=== PATIENT | female | born 1995 | race Caucasian/White ===

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

== ENCOUNTER 2017-01-13 16:36 | Emergency (ER) | payer OTHER ==
[2017-01-13 16:41] VITALS: BP 124/69; PULSE 85; TEMP 98.4; BMI 35.9
--- NOTE | 2017-01-13 18:05 | PDOC ---
History of Present Illness - General Chief Complaint: Pain, Acute Stated Complaint: SHOULDER PAIN Time Seen by Provider: 01/13/17 17:31 History Source: Patient Exam Limitations: No Limitations - History of Present Illness Initial Comments: 01/13/17 18:01 Chief complaint: Right shoulder pain with radiation to under rt. breast History of present illness: Patient is a 21-year-old female with a history of PCOS and hypothyroidism here today complaining of right shoulder pain that radiates to right torso to right rib cage area under right breast that is worse with deep breathing and with certain movements or the last 4 days. Patient reports that today the pain was worse causing her to have to leave work.. Patient is also on oral contraceptives. 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 Patient easily bruises according to her and her mother and has a bruise on her right dorsal proximal forearm that patient noticed on Monday when she got home. She denies any shortness of breath. Patient denies any nasal congestion, sore throat, cough or any shortness of breath. Patient reports that she cannot lie on her right side lies that her left side however still continues to feel pain on right side as previously mentioned. Patient has not taken anything for pain except for one Percocet of her mother's yesterday that did not relieve the pain. Patient reports the pain is continuous even when not moving. Patient denies any neck pain. Pt. denies any leg pain or recent immoblity or travel or shortness of breath 01/13/17 22:44 01/13/17 23:14 01/13/17 23:15 Timing/Duration: getting worse (over 4 days) Severity: severe Associated Symptoms: reports: denies symptoms Past History - Past Medical History Allergies/Adverse Reactions: Allergies Allergy/AdvReac Type Severity Reaction Status Date / Time No Known Allergies Allergy Verified 01/13/17 16:41 Home Medications: Ambulatory Orders Cyclobenzaprine HCl [Flexeril 10 mg] 10 mg PO Q12H PRN #14 tablet MDD 2 Levothyroxine [Synthroid -] 100 mcg PO DAILY 01/13/17 Metformin HCl [Glucophage -] 500 mg PO DAILY 01/13/17 Naproxen [Naprosyn -] 500 mg PO BID PRN #14 tablet MDD 2 01/13/17 Thyroid Disease: Yes (HYPOTHYROID) Other medical history: PCOS - Immunization History Immunization Up to Date: Yes - Psycho/Social/Smoking Cessation Hx Anxiety: No Suicidal Ideation: No Smoking History: Never smoked Hx Alcohol Use: Yes (OCCASIONALLY) Drug/Substance Use Hx: No Substance Use Type: Marijuana Review of Systems - Review of Systems Able to Perform ROS?: Yes Constitutional: No: Symptoms Reported HEENTM: No: Symptoms Reported Respiratory: No: Symptoms reported Cardiac (ROS): No: Symptoms Reported ABD/GI: No: Symptoms Reported : No: Symptoms Reported Musculoskeletal: Yes: Joint Pain (rt. shoulder ), Muscle Pain (rt. shoulder, torso under rt. breast sharp pain ) Integumentary: Yes: Bruising (rt. forearm ) Neurological: No: Symptoms reported *Physical Exam - Vital Signs Last Vital Signs Temp Pulse Resp BP Pulse Ox 98.4 F 85 18 124/69 100 01/13/17 16:38 01/13/17 16:38 01/13/17 16:38 01/13/17 16:38 01/13/17 16:38 - Physical Exam General Appearance: Yes: Appropriately Dressed Neck: negative: Tender, Lymphadenopathy (R), Lymphadenopathy (L), Rigidity, Tender lateral, Tender midline Respiratory/Chest: positive: Lungs Clear, Normal Breath Sounds. negative: Chest Tender, Respiratory Distress Cardiovascular: positive: Regular Rhythm, Regular Rate, S1, S2 Musculoskeletal: negative: Normal Inspection, CVA Tenderness, CVA Tenderness (R) , Muscle Spasm, Vertebral Tenderness Extremity: positive: Normal Capillary Refill, Normal Inspection, Normal Range of Motion, Tender (rt. shoulder area ) Integumentary: positive: Bruising (rt. dorsal proximal approx 4 cm in diameter) Neurologic: positive: Alert, Normal Response, Motor Strength 5/5 (b/l upper extremity) ED Treatment Course - LABORATORY CBC & Chemistry Diagram: 01/13/17 19:15 - ADDITIONAL ORDERS Additional order review: Laboratory Results 01/13/17 17:30 Urine HCG, Qual Negative Medical Decision Making - Medical Decision Making 01/13/17 18:05 Patient is a 21-year-old female with a history of PC[place] and hypothyroidism here today complaining of right shoulder pain that radiates to right torso to right rib cage area under right breast that is worse with deep breathing and with certain movements or the last 4 days. Patient reports that today the pain was worse causing her to have to leave work.. Patient is also on oral contraceptives. 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 Patient easily bruises according to her and her mother and has a bruise on her right dorsal proximal forearm that patient noticed on Monday when she got home. She denies any shortness of breath. Patient denies any nasal congestion, sore throat, cough or any shortness of breath. Patient reports that she cannot lie on her right side lies that her left side however still continues to feel pain on right side as previously mentioned. Patient has not taken anything for pain except for one Percocet of her mother's yesterday that did not relieve the pain. Patient reports the pain is continuous even when not moving. Patient denies any neck pain.Pt. denies any leg pain or recent immoblity or travel or shortness of breath. Pt. is a low risk for PE, is not tachycardic, no leg pain/swelling or any recent surgery, is not , no SOB however is on OCP and smokes and is complaining of rt. sided chest pain "deep in my chest on right lower side". Rule out PE versus musculoskeletal pain Plan: BMP D-dimer Urine hCG Toradol 60 mg IM now 01/13/17 20:03 D-Dimer coagulized told after it had been spinning 90 minutes later to say it was coagulized, pt. is feeling better however to ensure not PE pt. would like Chest CTA Laboratory Tests 01/13/17 01/13/17 01/13/17 17:30 18:00 19:15 Chloride Cancelled Carbon Dioxide Cancelled Anion Gap Cancelled BUN Cancelled Creatinine Cancelled Creat Clearance w eGFR > 60 Random Glucose Cancelled Calcium Cancelled Total Bilirubin 0.2 AST 15 ALT 21 Alkaline Phosphatase 64 Total Protein 7.5 Albumin 3.7 Urine HCG, Qual Negative 01/13/17 22:44 Unable to get CTA due to pt. having small veins unable to insert 20 gauge IV catheter will get CT with contrast of chest no obvious pulmonary embolism is identified centrally and at the level of the proximal segmental arteries. Evaluation of the more distal pulmonary vasculature is not well visualized due to limited venous access. A small wedge-shaped focus of right middle lobe atelectasis is seen which is probably chronic. There is minimal discord atelectasis versus linear fracture mild scarring within the lingula per Dr. Frank pt. has lessened feeling better will discharge to home Naprosyn 500 mg bid prn pain flexeril 10 mg q 12 hrs prn muscle spasm follow up with PCP within the next few days She informed that she should return to emergency room if pain worsens or any shortness of breath or difficulty breathing 01/13/17 23:12 *DC/Admit/Observation/Transfer Diagnosis at time of Disposition: Right-sided chest wall pain Shoulder pain, right Qualifiers: Chronicity: acute Qualified Code(s): M25.511 - Pain in right shoulder - Discharge Dispostion Disposition: HOME Condition at time of disposition: Stable - Prescriptions Prescriptions: Cyclobenzaprine HCl [Flexeril 10 mg] 10 mg PO Q12H PRN #14 tablet MDD 2 PRN Reason: Muscle Spasms Naproxen [Naprosyn -] 500 mg PO BID PRN #14 tablet MDD 2 PRN Reason: Pain - Referrals Referrals: Hakeem Solis MD [Primary Care Provider] - - Patient Instructions Additional Instructions: Return to emergency room if any difficulty breathing or worsening pain Avoid any strenuous activities or exercise using your right arm or twisting at the torso for the next few days Follow-up with your primary care provider within the next few days Patient voiced understanding of discharge instructions and all questions were answered - Post Discharge Activity Work/School Note: Back to Work
[2017-01-13] MEDS ORDERED: KETOROLAC TROMETHAMINE 60 MG/2 ML VIAL IM ONE (18:06)
[2017-01-13] MEDS ORDERED: KETOROLAC TROMETHAMINE 60 MG/2 ML VIAL ONE (18:18)
[2017-01-13 19:48] LABS: ALBUMIN 3.7 g/dl (3.4-5.0); ALK PHOS 64 U/L (45-117); ANION GAP 9 (8-16); BILIRUBIN,TOTAL 0.2 mg/dL (0.2-1.0); CALCIUM 9.3 mg/dL (8.5-10.1); CO2 24 mmol/L (21-32); CREATININE 0.9 mg/dL (0.55-1.02); GLUCOSE,RANDOM 75 mg/dL (74-106); SGOT/AST 15 U/L (15-37); SGPT/ALT 21 U/L (12-78); TOT PROT 7.5 g/dl (6.4-8.2)
[2017-01-13] MEDS ORDERED: KETOROLAC TROMETHAMINE 30 MG/1 ML VIAL ONE (22:19)
== END 2017-01-13 22:56 | disposition home or self-care (01) ==
LOC: JERFT 16:36
PROC: 3E0233Z Introduction of Anti-inflammatory into Muscle, Percutaneous Approach (ICD-10-PCS; principal; 2017-01-13)
DX: R07.89 Other chest pain (principal); M25.511 Pain in right shoulder
CPT/HCPCS: 36415; 71260-TC; 80053; 84703; 96372; 99281-25